=== PATIENT | female | born 1990 | race Two or more races ===

== ENCOUNTER 2023-06-15 22:41 | Emergency (ER) | payer OTHER ==
[~2023-06-15] VITALS: Ht 170.2 cm; Wt 56.7 kg
[2023-06-16 02:20] LABS: ALKALINE PHOSPHATASE 42 U/L (50-136); ALT/SGPT 28 U/L (12-78); ANION GAP 21 (10.0-20.0); AST/SGOT 43 U/L (15-37); BILIRUBIN TOTAL 0.62 mg/dL (0.3-1.2); BLOOD UREA NITROGEN 11 mg/dL (7-18); BUN CREA RATIO 15 (7.0-25.0); CALCIUM 8.9 mg/dL (8.5-10.1); CARBON DIOXIDE 24 mEq/L (21-32); CHLORIDE 97 mmol/L (98-107); CREATININE SERUM 0.71 mg/dL (0.55-1.02); GFR 93.68; GLOBULINA 4.4 G/DL (2.4-3.5); GLUCOSE FASTING 73 mg/dL (65-100); OSMOLALITY SERUM 272 MOSM/KG (275-295); POTASSIUM 4.54 mEq/L (3.5-5.1); SODIUM 137 mmol/L (136-145); TOTAL PROTEIN 8.4 gm/dL (6.4-8.2)
[2023-06-16 02:29] LABS: HCG QUANTITATIVE < 1 mUI/mL (1-3)
[2023-06-16 02:39] LABS: HEMATOCRIT 40.8 % (36.0-45.00); MEAN CELL VOLUME 97.4 fL (80.00-100.00); MEAN CORPUSCULAR HEMOGLOBIN 33.4 pg (27.00-32.0); MEAN CORPUSCULAR HGB CONC 34.3 g/dl (32.0-36.0); PLATELET COUNT 285 K/uL (150-450); RED BLOOD COUNT 4.19 M/uL (4.00-6.00); RED CELL DISTRIBUTION WIDTH 13.9 % (11.5-14.5)
[2023-06-16 04:55] LABS: URINE APPEARANCE Clear; URINE BILIRRUBIN Negative (NEGATIVE); URINE BLOOD Moderate; URINE COLOR Yellow; URINE GLUCOSE Negative (NEGATIVE); URINE LEUKOCYTE Negative; URINE NITRATE Negative; URINE PROTEIN Negative (NEGATIVE); URINE UROBILINOGEN 0.2 E.U./dl
[2023-06-16 04:57] LABS: URINE BACTERIA 549.2 uL (0.0-1933); URINE EPITHELIAL CELLS 7.2 uL (0.0-38.8); URINE RBC 33.7 uL (0.0-20.8); URINE WBC 2.1 uL (0.0-23.2)
[2023-06-16] MEDS ORDERED: ONDANSETRON ODT4 MG PO (05:07)
== END 2023-06-16 05:18 | disposition home or self-care (01) ==
LOC: ER 22:41
PROVIDERS: General Practice
DX: E86.0 Dehydration (principal); R11.10 Vomiting, unspecified

== ENCOUNTER 2025-07-05 12:38 | Emergency (ER) | payer OTHER ==
[~2025-07-05] VITALS: Ht 170.2 cm; Wt 56.7 kg
[~2025-07-05 12:38] MED LIST: ONDANSETRON ODT4 MG PO
[2025-07-05] MEDS ORDERED: 0.9 % SODIUM CHLORIDE 1,000 ML IV STA (14:38)
[2025-07-05] MEDS ORDERED: GABAPENTIN 300 MG CAPSULE PO SCH (14:39)
[2025-07-05] MEDS ORDERED: DIAZEPAM 5 MG TABLET PO SCH (14:39)
[2025-07-05] MEDS ORDERED: MULTIVIT INFUSN,ADULT 4,VIT K 10 ML VIAL IV STA (14:40)
[2025-07-05] MEDS ORDERED: THIAMINE HCL 100 MG TABLET PO STA (14:40)
[2025-07-05] MEDS ORDERED: SERTRALINE HCL 50 MG TABLET PO STA (14:41)
[2025-07-05 17:58] LABS: URINE APPEARANCE Clear; URINE BILIRRUBIN Negative (NEGATIVE); URINE BLOOD Negative; URINE COLOR Yellow; URINE GLUCOSE Negative (NEGATIVE); URINE KETONE Negative (NEGATIVE); URINE LEUKOCYTE Negative; URINE NITRATE Negative; URINE PROTEIN Trace (NEGATIVE); URINE UROBILINOGEN 0.2 E.U./dl
[2025-07-05 18:00] LABS: BASO % 1.5 % (0.1-1.2); EOS # 0.02 (0.04-0.54); EOS % 0.3 % (0.7-7.0); LYMPH # 3.32 (1.18-3.74); LYMPH % 55.1 % (19.3-53.1); MEAN PLATELET VOLUME 9.10 fl (9.4-12.4); MONO # 0.33 (0.24-0.82); MONO % 5.5 % (4.7-12.5); NEUT # 2.27 (1.56-6.13); NEUT % 37.6 % (34.0-71.1); RED CELL DISTRIBUTION WIDTH 13.2 % (11.6-14.4)
[2025-07-05 18:03] LABS: URINE BACTERIA 1180.6 uL (0.0-1933); URINE EPITHELIAL CELLS 30.1 uL (0.0-38.8); URINE RBC 2.9 uL (0.0-20.8); URINE WBC 5.2 uL (0.0-23.2)
[2025-07-05 18:11] LABS: URINE CAST 0.00 uL (0.0-1.40)
[2025-07-05 18:17] LABS: INR 1.0
[2025-07-05 18:22] LABS: COCAINE NEGATIVE (NEGATIVE); METHADONE NEGATIVE (NEGATIVE); OPIATES NEGATIVE (NEGATIVE); THC ( Cannabinoids) NEGATIVE (NEGATIVE)
[2025-07-05 20:28] LABS: ALT/SGPT 26.0 U/L (12-78); AST/SGOT 39.0 U/L (15-37); BILIRUBIN TOTAL 0.35 mg/dL (0.3-1.2); BUN CREA RATIO 19.0 (7.0-25.0); CREATININE SERUM 0.48 mg/dL (0.55-1.02); GFR 145.52; GLOBULINA 3.9 G/DL (2.4-3.5); GLUCOSE FASTING 88.0 mg/dL (65-100); OSMOLALITY SERUM 277.0 MOSM/KG (275-295)
[2025-07-05] MEDS ORDERED: VISTARIL50 MG/ML PO (22:24)
== END 2025-07-05 22:57 | disposition home or self-care (01) ==
LOC: ER 12:39
PROVIDERS: Physician Assistant Medical; Student in an Organized Health Care Education/Training Program
DX: F10.939 Alcohol use, unspecified with withdrawal, unspecified (principal); F41.8 Other specified anxiety disorders